=== PATIENT | female | born 1960 | race Caucasian/White ===

== ENCOUNTER 2022-06-25 07:30 | Outpatient (RCR) | payer OTHER, SELFPAY | END 2022-08-05 11:07 | disposition home or self-care (01) | PROVIDERS: Visit Provider Orthopaedic Surgery Sports Medicine | DX: M75.101 Unspecified rotator cuff tear or rupture of right shoulder, not specified as traumatic (principal); Z51.89 Encounter for other specified aftercare | CPT/HCPCS: 97110; 97140; 97161 ==

== ENCOUNTER 2022-07-23 10:45 | Outpatient (CLI) | payer OTHER, SELFPAY ==
--- NOTE | 2022-07-23 11:00 | CRLHL7_ITS ---
For Patients: As a result of the Century Cures Act, medical imaging exams and procedure reports are released immediately into your electronic medical record. You may view this report before your referring provider. If you have questions, please contact your health care provider. Indication: Posterior soft tissue mass Technique: Grayscale and color Doppler ultrasound the posterior upper thorax in the left paramidline region corresponding to the area of concern. Comparison: None Findings: Ovoid circumscribed soft tissue mass is present superficial to the muscular layer measuring 2.5 x 0.7 x 3.1 cm. No abnormal vascularity. Echotexture is similar to areas of fat. Impression: Soft tissue lipoma measuring 2.5 x 0.7 x 3.1 cm. Dictated by Luis Rice MD @ 07/23/2022 11:59:24 AM (Electronically Signed)
== END 2022-07-23 10:46 | disposition home or self-care (01) ==
PROVIDERS: Visit Provider Surgery
DX: R22.1 Localized swelling, mass and lump, neck (principal); D17.0 Benign lipomatous neoplasm of skin and subcutaneous tissue of head, face and neck
CPT/HCPCS: 76536

== ENCOUNTER 2024-01-09 16:37 | Outpatient (REF) | payer OTHER, SELFPAY ==
[2024-01-09 17:18] LABS: NT Pro B Type NatriureticPept* 227 pg/mL
== END 2024-01-09 16:38 | disposition home or self-care (01) ==
LOC: NPINS 16:37
PROVIDERS: Visit Provider Nurse Practitioner Adult Health
DX: R79.89 Other specified abnormal findings of blood chemistry (principal)
CPT/HCPCS: 83880